=== PATIENT | female | born 2000 | race Caucasian/White ===

== ENCOUNTER 2022-04-11 12:14 | Outpatient (CLI) | payer BC | END 2022-04-11 12:15 | disposition home or self-care (01) | LOC: CSHLAB 12:14 | PROVIDERS: ATTEND Obstetrics & Gynecology | DX: Z01.812 Encounter for preprocedural laboratory examination (principal); Z20.822 Contact with and (suspected) exposure to COVID-19 | CPT/HCPCS: 84703; 85027; 86850; 86900; 86901; 87811 ==

== ENCOUNTER 2022-04-16 07:56 | Day surgery (SDC) | payer BC ==
[2022-04-11 14:06] LABS: Hemoglobin 13.1 g/dL (12.0-15.5); Mean Corpuscular Hemoglobin 30.4 pg (27.0-33.0); Mean Corpuscular Volume 89.3 fl (81.6-98.3); Mean Platelet Volume 9.8 fl (7.4-10.4); Platelet Count 338 10x3/uL (150-450); RBC Distribution Width 12.6 % (11.5-14.5); Red Blood Cell (RBC) Count 4.31 10x6/uL (3.90-5.03); White Blood Cell (WBC) Count 7.1 10x3/uL (3.5-10.5)
[2022-04-11 14:22] LABS: BHCG - Serum Negative (NEGATIVE); Pregs Control Background? CLEAR/WHITE (CLR/WHITE); Pregs Control Bar Appear? YES (CONTROL BAR)
[2022-04-14 11:32] VITALS: BMI 18.3
[2022-04-16] MEDS ORDERED: Gabapentin 300 MG CAP ONE (08:17)
[2022-04-16] MEDS ORDERED: Lidocaine 1% MPF 2 ML VIAL ONE (08:18)
[2022-04-16] MEDS ORDERED: CeleCOXIB 100 MG CAP ONE (08:18)
[2022-04-16] MEDS ORDERED: Bupivacaine PF 0.5% 30 ML VIAL ONE (09:23)
[2022-04-16] MEDS ORDERED: EPINEPHrine 1 MG/ML AMP ONE (09:23)
[2022-04-16] MEDS ORDERED: PROPOFOL 20 ML ONE (09:36)
[2022-04-16] MEDS ORDERED: Lidocaine 1% PF 5 ML VIAL ONE (09:36)
[2022-04-16] MEDS ORDERED: Ondansetron PF 4 MG/2 ML Vial ONE (09:36)
[2022-04-16] MEDS ORDERED: Rocuronium Bromide 10 MG/ML (10ML VIAL) ONE (09:36)
[2022-04-16] MEDS ORDERED: Midazolam HCl 2 mg/2 ml Vial ONE ×2 (09:36→09:51)
[2022-04-16] MEDS ORDERED: Dexamethasone 20 MG/5 ML VIAL ONE (09:37)
[2022-04-16] MEDS ORDERED: Glycopyrrolate 0.2 MG/ML 5 ML SYRINGE ONE (09:37)
[2022-04-16] MEDS ORDERED: Ketorolac Tromethamine 30 MG/ML VIAL ONE (09:37)
[2022-04-16] MEDS ORDERED: Fentanyl 100 MCG/2 ML VIAL ONE (09:37)
[2022-04-16] MEDS ORDERED: CEFAZOLIN 2 GM VIAL ONE (09:52)
[2022-04-16] MEDS ORDERED: Meperidine HCl/PF 25 MG/ML VIAL ONE (10:39)
== END 2022-04-16 13:40 | disposition home or self-care (01) ==
LOC: CSHSDC 07:56
PROVIDERS: ATTEND Obstetrics & Gynecology
PROC: 0WJG4ZZ Inspection of Peritoneal Cavity, Percutaneous Endoscopic Approach (ICD-10-PCS; principal; 2022-04-16)
DX: R10.2 Pelvic and perineal pain (principal); G89.29 Other chronic pain; G89.18 Other acute postprocedural pain; Z20.822 Contact with and (suspected) exposure to COVID-19; J45.909 Unspecified asthma, uncomplicated; Z79.899 Other long term (current) drug therapy; Z88.2 Allergy status to sulfonamides
CPT/HCPCS: 84703; 85027; 86850; 86900; 86901; 87811; J0171; J0690; J1100; J1885; J2175; J2250; J2405; J2704; J3010; S0020

== ENCOUNTER → 2025-05-05 | Day surgery (SDC) | payer OTHER ==
[~2025-05-05] MED LIST: Gadobenate 529 MG/ML (10ML SDV) ONE; Gadobenate Dimeglumine 2 ML, Sodium Chloride 0.9% 250 ML 10 ML, Iopamidol 8 ML, Lidocai... FS ONE; Iopamidol 300 61% 30 ML VIAL ONE
== END ==
LOC: CSHRAD 12:34
PROVIDERS: ATTEND Orthopaedic Surgery
PROC: BQ00YZZ Plain Radiography of Right Hip using Other Contrast (ICD-10-PCS; principal; 2025-05-05)
DX: Q65.89 Other specified congenital deformities of hip (principal); S73.191A Other sprain of right hip, initial encounter; X58.XXXA Exposure to other specified factors, initial encounter
CPT/HCPCS: 27093; 77002; A9577; J0166; J7050; Q9967